=== PATIENT | female | born 1935 | race Hispanic/Latino ===

== ENCOUNTER 2017-09-04 20:31 | Emergency (ER) | payer MEDICARE, MEDICAID ==
[2017-09-04] MEDS ORDERED: Lidocaine 1% 20 ML MDV ONE (21:42)
[2017-09-04] MEDS ORDERED: Adacel (T-DAP) 0.5 ML VIAL ONE (21:54)
--- NOTE | 2017-09-04 21:58 | RAD ---
RIGHT HIP TWO VIEWS: Date: 09-04-17 FINDINGS: No fracture was appreciated. The adjacent pubic ring appears intact. Dense arterial sclerosis is pre sent in the femoral arteries. IMPRESSION: No acute findings. POS: HOME
[2017-09-04] MEDS ORDERED: Bacitracin Zinc 1 Packet ONE (22:00)
--- NOTE | 2017-09-04 22:03 | RAD ---
LEFT TWO HIP TOW VIEWS: Date: 09-04-17 FINDINGS: No fracture was appreciated. The adjacent pubic ring appears intact. Dense arterial sclerosis in the femoral arteries is seen. IMPRESSION: No acute finding. POS: HOME
[2017-09-04 22:22] LABS: Bilirubin Negative (Negative); Blood, Urine Trace (Negative); Clarity Clear (Clear); Glucose, Urine (Dipstick) Negative (Negative); Leukocyte Negative (Negative); Nitrite Negative (Negative); Protein, Urine (Dipstick) Negative (Neg-Trace); Urobilinogen 0.2 mg/dL (0.2-1.0)
[2017-09-04 22:28] LABS: Bacteria/HPF Rare-Few HPF (None Seen); RBC/HPF 0-3 HPF (0-3); Squamous Epithelial 0-3 HPF (0-3); WBC/HPF 0-3 HPF (0-3)
--- NOTE | 2017-09-04 22:33 | RAD ---
RIGHT KNEE FOUR VIEWS: Date: 09-04-17 FINDINGS: Severe arthritis is present with lateral joint space narrowing and large osteophytes. Some meniscal and cartilaginous calcifications are present. Large osteophytes are seen in the patellofemoral joint . No fracture or joint effusion was evident. Arterial calcifications are present. IMPRESSION: Severe arthritic changes. POS: HOME
--- NOTE | 2017-09-04 22:59 | CT ---
CT OF THE CERVICAL SPINE WITHOUT CONTRAST: Date: 09-04-17 Technique: Spiral CT of the cervical spine was done following trauma. Axial slices were acquired and then coronal and sagittal reconstructions were done. The patient was moving for portions of the exa mination which particularly affected the lower cervical slices. Thus, this exam does have limitation s and is of lowered sensitivity. FINDINGS: No gross fracture or dislocation was seen. The C1-2 dens distance is normal and the soft tissues are normal in thickness. 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 There is slight disc space narrowing a t C3-4 and also at C6-7. Findings my level follow: C1-2: No acute findings. C2-3: Right foraminal narrowing with significant right facet arthritis. C3-4: Prominent posterior disc osteophyte complex causing central canal stenosis. AP diameter about 8 mm. Mild to moderate bilateral foraminal stenosis and facet arthritis, left greater than right. C4-5: Moderate to severe bilateral foraminal stenosis and facet arthritis. A small discosteophyte co mplex is seen but there is no large amount of central canal stenosis. C5-6: Foramina are patent. C6-7: Mild bilateral foraminal narrowing. Facet arthritis prominent, particularly on the right. AP d iameter of the spinal canal at this level is about 10 mm. C7-T1: Partially hard to see due to artifact. No gross acute findings. Below this level there is considerable motion artifact. IMPRESSION: 1. Study significantly limited by motion artifact. No gross fracture identified. 2. Extensive degenerative changes throughout. Significant central canal stenosis at C3-4. 3. 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 4. Other findings as above. POS: HOME
--- NOTE | 2017-09-04 23:36 | CT ---
CT BRAIN WITHOUT CONTRAST: Date: 09-04-[address] was done for evaluation following trauma. FINDINGS: A large hematoma is seen over the right frontal region of the scalp. The underlying bone appears int act. There are no skull fractures and no air fluid level in the sphenoid sinus. The visible paranasa l sinuses are clear. Internally, no intracranial bleeding, extraaxial hematoma, mass, or edema was seen. The ventricles a re normal in size for age and atrophy. Patchy hypo lucency throughout the deep white matter is typic al of chronic ischemic change. A more focal lacunar infarct is seen in the right thalamus and probab ly the area just above the left thalamus. IMPRESSION: 1. Right frontal scalp hematoma with no acute intracranial findings. 2. Atrophy with prominent chronic ischemic changes including a few areas of old lacunar infarct. POS: HOME
== END 2017-09-04 22:47 | disposition home or self-care (01) ==
LOC: BURERS 20:31
DX: S01.111A Laceration without foreign body of right eyelid and periocular area, initial encounter (principal); S01.112A Laceration without foreign body of left eyelid and periocular area, initial encounter; S50.311A Abrasion of right elbow, initial encounter; F02.80 Dementia in other diseases classified elsewhere, unspecified severity, without behavioral disturbance, psychotic disturbance, mood disturbance, and anxiety; G30.0 Alzheimer's disease with early onset; K21.9 Gastro-esophageal reflux disease without esophagitis; E78.5 Hyperlipidemia, unspecified; R26.2 Difficulty in walking, not elsewhere classified; I10 Essential (primary) hypertension; Z79.899 Other long term (current) drug therapy; Z23 Encounter for immunization; W18.30XA Fall on same level, unspecified, initial encounter; Y92.129 Unspecified place in nursing home as the place of occurrence of the external cause
CPT/HCPCS: 12011; 51701; 70450; 72125; 81003; 81015; 87086; 90471; 90715; A4353; J2001

== ENCOUNTER 2017-09-05 02:34 | Emergency (ER) | payer MEDICARE, OTHER ==
[2017-09-05 03:34] LABS: INR-International Normal Ratio 0.9; Prothrombin Time 12.6 SEC (12.0-14.7)
[2017-09-05 03:40] LABS: #Basophils 0.1 thou/uL (0.0-0.2); #Lymphocytes 1.6 thou/uL (1.20-3.40); #Monocytes 0.9 thou/uL (0.11-0.59); #Neutrophils 7.3 thou/uL (1.40-6.50); %Eosinophils 0.5 % (0.0-10.0); %Lymphocytes 15.8 % (21.0-51.0); %Monocytes 8.8 % (0.0-10.0); %Neutrophils 73.9 % (42.0-75.0); Hemoglobin 14.6 g/dL (12.0-16.0); Mean Corpuscular HGB CONC 32.7 g/dL (32.0-36.0); Mean Corpuscular Hemoglobin 32.5 pg (27.0-31.0); Mean Corpuscular Volume 99.2 fl (81.0-99.0); Mean Platelet Volume 10.7 fL (7.4-10.4); Platelet Count 152 thou/uL (130-400); RBC Distribution Width 12.8 % (11.5-14.5); Red Blood Cell (RBC) Count 4.48 mill/uL (4.20-5.40); White Blood Cell (WBC) Count 9.8 thou/uL (4.8-10.8)
[2017-09-05 03:43] LABS: ALT (SGPT) 290 U/L (8-55); AST (SGOT) 91 U/L (5-34); Alkaline Phosphatase 149 U/L (40-150); Anion Gap 18 mmol/L (10-20); BUN (Urea Nitrogen) 15 mg/dL (9.8-20.1); Bilirubin, Total 1.4 mg/dL (0.2-1.2); CK (CPK) 253 U/L (29-168); Calc. Creatinine Clearance 0 mL/min (70-130); Calcium 9.6 mg/dL (7.8-10.44); Carbon Dioxide 23 mmol/L (23-31); Chloride 104 mmol/L (98-107); Estimated GFR-MDRD 67; Globulin 3.1 g/dL (2.4-3.5); Glucose 100 mg/dL (83-110); Potassium 3.6 mmol/L (3.5-5.1); Protein, Total 7.1 g/dL (6.0-8.3); Sodium 141 mmol/L (136-145)
[2017-09-05 03:44] LABS: CKMB 3.9 ng/mL (0-6.6); Troponin I 0.041 ng/mL (< 0.028)
--- NOTE | 2017-09-05 07:17 | RAD ---
PORTABLE CHEST: Date: 09/05/17 An AP portable film at 0344 hours is presented with no prior films available for comparison. FINDINGS: The heart is mildly enlarged. The vessels seem slightly congested, in spite of a poor inspiration. I t is difficult to assess the area behind the heart on the left. There may be some valvular calcifica tion. Calcification is seen in the aortic arch. Degenerative changes are seen in the shoulders. IMPRESSION: Findings suggestive of mild congestive change. POS: HOME
--- NOTE | 2017-09-05 07:18 | RAD ---
LEFT KNEE 4 VIEWS: Date: 09/05/17 There has been a prior knee arthroplasty and I presume a fusion at the knee joint. No acute fracture seen. No sign of loosening of the hardware. No joint fluid seen. Femoral and other arterial calcifi cations are present. IMPRESSION: No acute traumatic change. POS: HOME
--- NOTE | 2017-09-05 09:23 | CT ---
PRELIMINARY REPORT/[facility]/EMERGENCY AFTER HOURS PROCEDURE: EXAM: CT Head Without Intravenous Contrast EXAM DATE/TIME: Exam ordered 09/05/2017 3:24 AM CLINICAL HISTORY: 82 years old, female; Injury or trauma; Fall; Patient HX: Fall, lac to rt. Occipital TECHNIQUE: Axial computed tomography images of the head/brain without intravenous contrast. COMPARISON: No relevant prior studies available. FINDINGS: Brain: Volume loss and chronic small vessel ischemic change. There is trace multifocal hypodensity a t the interface of the gyrus and sulcus in the left frontal lobe (images 13-15 of axial series 2) wh ich I suspect is artifact; however, trace subarachnoid hemorrhage cannot be excluded. Ventricles: Unremarkable. No ventriculomegaly. Bones/joints: Unremarkable. No acute fracture. Soft tissues: Right frontal scalp hematoma. Right periorbital hematoma/contusion. Sinuses: Unremarkable as visualized. No acute sinusitis. Mastoid air cells: Unremarkable as visualized. No mastoid effusion. IMPRESSION: Trace left frontal subarachnoid hemorrhage versus artifact. Thank you for allowing us to participate in the care of your patient. Dictated and Authenticated by: Samir Dexter MD 09/05/2017 4:16 AM Central Time ([place]) FINAL REPORT CT OF THE BRAIN WITHOUT CONTRAST: Date: 09/05/17 Comparison is made with the 09/04/17 study. FINDINGS: As before, a right frontal scalp hematoma and periorbital contusion is seen. Intracranially, the carly tricles remain normal in size for age and atrophy. Diffuse chronic ischemic changes and old lacunar infarcts are noted. There is no extra-axial hematoma or parenchymal hemorrhage. Attention is drawn t o slices 13-15 where there is a small amount of hyperdensity along one of the left frontal gyri. Whi le there is a chance that this could be a tiny amount of subarachnoid blood, I feel an artifact is m ore likely. It is remote from the side of trauma. I would say, however, it is not visible on the bakari or study. Otherwise, there are no acute intracranial findings. The calvarium appears intact and ther e is no air fluid level in the sphenoid sinus. The mastoid air cells are clear. IMPRESSION: 1. Right frontal scalp hematoma and periorbital contusion. 2. Diffuse chronic ischemic changes. 3. Tiny focal area of hyperdensity along one of the left frontal sulci. Tiny amount of subarachnoid blood versus artifact, though I slightly favor the latter. Report in agreement with preliminary reading by Ana Laura. POS: HOME
--- NOTE | 2017-09-05 09:26 | CT ---
PRELIMINARY REPORT/[facility]/EMERGENCY AFTER HOURS PROCEDURE: EXAM: CT Cervical Spine Without Intravenous Contrast EXAM DATE/TIME: Exam ordered 09/05/2017 3:28 AM CLINICAL HISTORY: 82 years old, female; Injury or trauma; Fall; Initial encounter; Blunt trauma; Patient HX: Fall, lac to rt. Occipital TECHNIQUE: Axial computed tomography images of the cervical spine without intravenous contrast. COMPARISON: No relevant prior studies available. FINDINGS: Vertebrae: Unremarkable. No acute fracture. Discs/spinal canal/neural foramina: Degenerative change. No fracture. No spinal canal stenosis. Soft tissues: Unremarkable. Lung apices: Unremarkable as visualized. IMPRESSION: No fracture. Thank you for allowing us to participate in the care of your patient. Dictated and Authenticated by: Samir Dexter MD 09/05/2017 4:19 AM Central Time ([place] \[place]\ [place]) FINAL REPORT CT CERVICAL SPINE: Date: 09/05/17 The patient was seen yesterday following a fall, but my understanding is that she fell for a second time, prompting rescanning. This exam shows no evidence of acute fracture, dislocation, or other acute traumatic change. There i s less motion artifact on the lower cervical/upper thoracic images than the ones done several hours earlier. No fractures were seen in these regions. Extensive degenerative changes are present through out the spine, which have already been described on the prior study. This includes prominent central canal stenosis at C3-C4. The soft tissues are normal in thickness and the C1 to dens distance is no rmal. IMPRESSION: No evidence of interim fracture. Report in agreement with preliminary reading by Ana Laura. POS: HOME
== END 2017-09-05 05:22 | disposition short-term general hospital (02) ==
LOC: BURERS 02:34
DX: S06.6X9A Traumatic subarachnoid hemorrhage with loss of consciousness of unspecified duration, initial encounter (principal); S01.01XA Laceration without foreign body of scalp, initial encounter; S80.02XA Contusion of left knee, initial encounter; S80.01XA Contusion of right knee, initial encounter; F02.80 Dementia in other diseases classified elsewhere, unspecified severity, without behavioral disturbance, psychotic disturbance, mood disturbance, and anxiety; G30.9 Alzheimer's disease, unspecified; I10 Essential (primary) hypertension; E78.5 Hyperlipidemia, unspecified; K21.9 Gastro-esophageal reflux disease without esophagitis; Z79.899 Other long term (current) drug therapy; W18.30XA Fall on same level, unspecified, initial encounter
CPT/HCPCS: 12001; 70450; 71010; 72125; 80053; 82550; 82553; 84484; 85025; 85610; 85730; 93005; 94760

== ENCOUNTER 2017-10-27 20:55 | Emergency (ER) | payer MEDICARE, MEDICAID ==
[2017-10-27] MEDS ORDERED: cefTRIAXone\\ROCEPHIN 2 GM VIAL ONE (21:20)
[2017-10-27 21:47] LABS: #Basophils 0.2 thou/uL (0.0-0.2); #Eosinphils 0.1 thou/uL (0.0-0.7); #Lymphocytes 0.7 thou/uL (1.20-3.40); #Monocytes 0.8 thou/uL (0.11-0.59); %Basophils 1.3 % (0.0-1.0); %Eosinophils 0.5 % (0.0-10.0); %Lymphocytes 5.8 % (21.0-51.0); %Monocytes 7.1 % (0.0-10.0); %Neutrophils 85.3 % (42.0-75.0); Hemoglobin 12.7 g/dL (12.0-16.0); Mean Corpuscular Hemoglobin 31.4 pg (27.0-31.0); Mean Corpuscular Volume 98.2 fl (81.0-99.0); Mean Platelet Volume 9.7 fL (7.4-10.4); Platelet Count 128 thou/uL (130-400); RBC Distribution Width 13.1 % (11.5-14.5); Red Blood Cell (RBC) Count 4.05 mill/uL (4.20-5.40); White Blood Cell (WBC) Count 11.7 thou/uL (4.8-10.8)
[2017-10-27 21:51] LABS: INR-International Normal Ratio 1.2; PTT 26.1 SEC (22.9-36.1); Prothrombin Time 14.9 SEC (12.0-14.7)
[2017-10-27 21:58] LABS: ALT (SGPT) 158 U/L (8-55); AST (SGOT) 26 U/L (5-34); Albumin 3.1 g/dL (3.4-4.8); Alkaline Phosphatase 198 U/L (40-150); Anion Gap 14 mmol/L (10-20); BUN (Urea Nitrogen) 47 mg/dL (9.8-20.1); Calc. Creatinine Clearance 0 mL/min (70-130); Calcium 9.4 mg/dL (7.8-10.44); Carbon Dioxide 19 mmol/L (23-31); Chloride 120 mmol/L (98-107); Estimated GFR-MDRD 60; Glucose 140 mg/dL (83-110); Potassium 4.6 mmol/L (3.5-5.1); Protein, Total 6.1 g/dL (6.0-8.3); Sodium 148 mmol/L (136-145)
[2017-10-27 22:14] LABS: Blood, Urine Large (Negative); Clarity Turbid (Clear); Leukocyte Large (Negative); Nitrite Positive (Negative)
[2017-10-27 22:20] LABS: Protein, Urine (Dipstick) > or equal to 300 mg/dL (Neg-Trace); Specific Gravity, Urine 1.028 (1.002-1.036)
[2017-10-27 22:33] LABS: RBC/HPF GREATER THAN 50-TNTC HPF (0-3)
[2017-10-27 22:34] LABS: Bacteria/HPF 4+ HPF (None Seen); Squamous Epithelial None Seen HPF (0-3); Yeast-All Forms 2+ HPF (None Seen)
[2017-10-27] MEDS ORDERED: Diltiazem 125 MG/25 ML ONE (22:34)
[2017-10-27 22:56] LABS: Troponin I 0.029 ng/mL (< 0.028)
--- NOTE | 2017-10-27 22:58 | RAD ---
PORTABLE CHEST 10/27/17 An AP portable film at 1900 is compared with a 09/05/17 study. The heart is mildly enlarged. The upper lobe vessels do not appear exceptionally congested. Haziness in the right base is either fluid in the major fissure or an infiltrate in the base. A large view wou ld be helpful. Otherwise, no lobar consolidations were seen. Arteriosclerotic changes seen in the aor ta. Scoliosis is present. There is superior subluxation of each humeral head in the glenoid fossa wit h narrowing of the acromiohumeral distance. IMPRESSION: Cardiomegaly with either right basilar fluid or infiltrate. POS: HOME
== END 2017-10-27 23:33 | disposition short-term general hospital (02) ==
LOC: BURERS 20:55
DX: N30.91 Cystitis, unspecified with hematuria (principal); I48.91 Unspecified atrial fibrillation; E86.0 Dehydration; J18.9 Pneumonia, unspecified organism; M06.9 Rheumatoid arthritis, unspecified; K21.9 Gastro-esophageal reflux disease without esophagitis; E78.5 Hyperlipidemia, unspecified; I10 Essential (primary) hypertension; G30.9 Alzheimer's disease, unspecified; F32.9 Major depressive disorder, single episode, unspecified; Z79.899 Other long term (current) drug therapy
CPT/HCPCS: 36415; 51701; 71010; 80053; 81003; 81015; 82553; 83605; 84484; 85025; 85610; 85730; 87040; 87077; 87086; 87186; 93005; 94760; 96365; 96366; 96368; 96376; A4353; J0696; J3490